=== PATIENT | female | born 2000 | race Hispanic/Latino ===

== ENCOUNTER 2021-04-06 13:55 | Emergency (ER) | payer BC | END 2021-04-06 14:20 | disposition home or self-care (01) | LOC: BURERS 13:55 | DX: H10.9 Unspecified conjunctivitis (principal); H00.016 Hordeolum externum left eye, unspecified eyelid; H01.009 Unspecified blepharitis unspecified eye, unspecified eyelid | CPT/HCPCS: 99283 ==